=== PATIENT | male | born 1960 | race Caucasian/White ===

== ENCOUNTER → 2017-11-11 | Outpatient (CLI) | payer OTHER, BC | LOC: COL.RAD 09:58 | DX: M47.26 Other spondylosis with radiculopathy, lumbar region (principal); M51.16 Intervertebral disc disorders with radiculopathy, lumbar region; M48.061 Spinal stenosis, lumbar region without neurogenic claudication ==

== ENCOUNTER 2019-02-23 07:26 | Day surgery (SDC) | payer OTHER, BC ==
[~2019-02-23] VITALS: Ht 190.5 cm; Wt 115.4 kg
[2019-02-23 07:51] VITALS: BP 151/96; PULSE 77; TEMP 98.3
[2019-02-23 09:10] VITALS: BP 155/100; PULSE 81; TEMP 98.3
--- NOTE | 2019-02-23 09:10 | NUR ---
Pt to [facility] via cart from ENDO. Pt awake and alert. Pt ambulates to recliner with stand by assistance x2. Pt denies pain or nausea. Applesauce and juice given per pt request. Will continue to monitor. Call light within reach.
[2019-02-23 09:25] VITALS: BP 136/93; PULSE 64
--- NOTE | 2019-02-23 09:25 | NUR ---
Pt tolerating food and fluids without difficulties. Sister in room. Call light within reach.
[2019-02-23 09:40] VITALS: BP 131/97; PULSE 91
--- NOTE | 2019-02-23 09:40 | NUR ---
Pt denies needs. Call light within reach.
--- NOTE | 2019-02-23 09:50 | NUR ---
Discharge instructions reviewed. Pt voices understanding. IV site discontinued with all parts intact. Pt up to dress. Call light within reach.
--- NOTE | 2019-02-23 10:00 | NUR ---
Pt escorted to private car via wheel chair. Pt accompanied home by his sister.
== END 2019-02-23 10:00 | disposition home or self-care (01) ==
LOC: SDCO 07:26
DX: Z12.11 Encounter for screening for malignant neoplasm of colon (principal)
CPT/HCPCS: J2250; J3010